=== PATIENT | male | born 1995 | race African-American/Black ===

== ENCOUNTER 2021-10-04 22:11 | Emergency (ER) | payer BC, MEDICAID ==
[~2021-10-04] VITALS: Ht 172.7 cm; Wt 113.4 kg
[2021-10-04 22:20] VITALS: BP_SYST 147
[2021-10-05] MEDS ORDERED: HYDROcodone/ACETAMIN 5-325 MG TAB (NORCO/ VICODIN) PO ONE (02:00)
[2021-10-05] MEDS ORDERED: ACETAMINOPHEN 325 MG TABLET PO ONE (02:45)
[2021-10-05 03:47] VITALS: BP_SYST 125
== END 2021-10-05 03:47 | disposition home or self-care (01) ==
LOC: SED 22:11
DX: N99.820 Postprocedural hemorrhage of a genitourinary system organ or structure following a genitourinary system procedure (principal)
CPT/HCPCS: 99283